=== PATIENT | female | born 1965 | race Two or more races ===

== ENCOUNTER 2022-01-22 06:50 | Day surgery (SDC) | payer OTHER ==
[~2022-01-22] VITALS: Ht 160 cm; Wt 81.6 kg
[~2022-01-22 06:50] MED LIST: MOTRIN PM CAPL1 EACH PO; PROTONIX40 MG PO; SYNTHROID50 MCG PO; TOPAMAX25 MG PO; TYLENOL ARTHRI650 MG PO
[2022-01-22] MEDS ORDERED: ULTRACET PO (10:21)
[2022-01-22] MEDS ORDERED: CEFADROXIL500 MG PO (10:21)
== END 2022-01-22 13:15 | disposition home or self-care (01) ==
LOC: CIR.AMB 06:50
PROVIDERS: ATTEND Surgery
DX: C44.529 Squamous cell carcinoma of skin of other part of trunk (principal); L98.499 Non-pressure chronic ulcer of skin of other sites with unspecified severity; Z91.013 Allergy to seafood; J45.909 Unspecified asthma, uncomplicated; E03.9 Hypothyroidism, unspecified; M81.0 Age-related osteoporosis without current pathological fracture; G43.909 Migraine, unspecified, not intractable, without status migrainosus; Z86.73 Personal history of transient ischemic attack (TIA), and cerebral infarction without residual deficits; K21.9 Gastro-esophageal reflux disease without esophagitis; K76.0 Fatty (change of) liver, not elsewhere classified

== ENCOUNTER 2022-04-18 09:50 | Emergency (ER) | payer OTHER ==
[~2022-04-18] VITALS: Ht 160 cm; Wt 81.6 kg
[~2022-04-18 09:50] MED LIST changes: +CEFADROXIL500 MG PO; +ULTRACET PO
== END 2022-04-18 18:33 | disposition home or self-care (01) ==
LOC: ER 09:50
DX: L98.499 Non-pressure chronic ulcer of skin of other sites with unspecified severity (principal); Z91.013 Allergy to seafood; K44.9 Diaphragmatic hernia without obstruction or gangrene